=== PATIENT | male | born 1975 | race African-American/Black ===

== ENCOUNTER 2017-12-11 19:12 | Emergency (ER) | payer SELFPAY | END 2017-12-11 20:10 | disposition home or self-care (01) | LOC: ERS 19:12 | DX: J06.9 Acute upper respiratory infection, unspecified (principal); E66.9 Obesity, unspecified | CPT/HCPCS: 87804; 99283 ==

== ENCOUNTER 2018-01-01 19:53 | Emergency (ER) | payer SELFPAY ==
--- NOTE | 2018-01-01 21:03 | RAD ---
LEFT TIBIA AND FIBULA TWO VIEWS: History: Left leg swelling. FINDINGS: No radiopaque foreign bodies are seen. No air within the soft tissues. No bony abnormalities. IMPRESSION: No evidence of fracture or other bony change. No radiopaque foreign bodies. POS: [facility]
--- NOTE | 2018-01-01 22:58 | ULT ---
LEFT LOWER EXTREMITY VENOUS DUPLEX EXAM: History: Left lower leg pain, redness, and swelling. FINDINGS: Real-time color doppler evaluation of the left lower extremity was performed from groin to calf. This includes evaluation of the common femoral, superficial, and profunda femoral, saphenous, popliteal, and trifurcation veins. This shows a patent deep venous system. There is normal compressibility and a ugmentation. There is no evidence of DVT. IMPRESSION: No evidence of DVT of the left lower extremity. POS: [facility]
== END 2018-01-01 23:02 | disposition home or self-care (01) ==
LOC: ERS 19:53
DX: S80.12XA Contusion of left lower leg, initial encounter (principal); W22.8XXA Striking against or struck by other objects, initial encounter